=== PATIENT | male | born 1975 | race African-American/Black ===

== ENCOUNTER 2019-03-13 12:11 | Emergency (ER) | payer SELFPAY ==
[2019-03-13 13:34] LABS: #Eosinphils 0.1 thou/uL (0.0-0.7); #Lymphocytes 1.3 thou/uL (1.20-3.40); #Monocytes 0.5 thou/uL (0.11-0.59); #Neutrophils 4.7 thou/uL (1.40-6.50); %Basophils 0.6 % (0.0-1.0); %Eosinophils 1.3 % (0.0-10.0); %Lymphocytes 19.6 % (21.0-51.0); %Neutrophils 70.6 % (42.0-75.0); Hemoglobin 15.8 g/dL (14.0-18.0); Mean Corpuscular HGB CONC 34.1 g/dL (32.0-36.0); Mean Corpuscular Hemoglobin 31.3 pg (27.0-31.0); Mean Corpuscular Volume 91.9 fL (78.0-98.0); Mean Platelet Volume 8.2 fL (7.4-10.4); Platelet Count 212 thou/uL (130-400); RBC Distribution Width 12.5 % (11.5-14.5); Red Blood Cell (RBC) Count 5.05 mill/uL (4.70-6.10); White Blood Cell (WBC) Count 6.6 thou/uL (4.8-10.8)
[2019-03-13 14:00] LABS: ALT (SGPT) 30 U/L (8-55); AST (SGOT) 23 U/L (5-34); Albumin 4.3 g/dL (3.5-5.0); Alkaline Phosphatase 94 U/L (40-150); Anion Gap 12 mmol/L (10-20); BUN (Urea Nitrogen) 18 mg/dL (8.9-20.6); Bilirubin, Total 0.2 mg/dL (0.2-1.2); Calc. Creatinine Clearance 0 mL/min (70-130); Calcium 9.7 mg/dL (7.8-10.44); Carbon Dioxide 28 mmol/L (22-29); Chloride 98 mmol/L (98-107); Dilantin 5.1 ug/mL (10.0-20.0); Estimated GFR-MDRD Greater than 90; Globulin 3.3 g/dL (2.4-3.5); Glucose 96 mg/dL (70-105); Potassium 3.2 mmol/L (3.5-5.1); Protein, Total 7.6 g/dL (6.0-8.3); Sodium 135 mmol/L (136-145)
== END 2019-03-13 14:49 | disposition home or self-care (01) ==
LOC: ERS 12:11
DX: R89.2 Abnormal level of other drugs, medicaments and biological substances in specimens from other organs, systems and tissues (principal); E78.5 Hyperlipidemia, unspecified; E78.00 Pure hypercholesterolemia, unspecified; I10 Essential (primary) hypertension; F41.9 Anxiety disorder, unspecified; F32.9 Major depressive disorder, single episode, unspecified; Z79.899 Other long term (current) drug therapy
CPT/HCPCS: 36415; 80053; 80185; 84146; 85025

== ENCOUNTER 2020-03-19 15:03 | Outpatient (CLI) | payer OTHER ==
--- NOTE | 2020-03-19 17:01 | MRI ---
MR CERVICAL SPINE WITHOUT CONTRAST INDICATION: Concern for cervical disc displacement; neck pain TECHNIQUE: Multiplanar multisequence MR images were obtained of the cervical spine without contrast. COMPARISON: None FINDINGS: Posterior fossa: Within normal limits. Bone marrow signal intensity: There is mild Modic endplate degenerative changes seen at C6-7. Spinal alignment: There is straightening of the normal cervical lordosis. Craniocervical junction: Normal appearing. Prevertebral and perivertebral soft tissues: There is prevertebral edema seen extending from the skul l base to the T1 vertebral level, most evident on image 11 of series 6. Vertebral levels: C2-C3: There is mild facet joint degenerative change bilaterally. C3-4: There is uncovertebral hypertrophy and facet joint degenerative change inducing severe right an d moderate left neural foraminal narrowing. The broad-based bulge produces mild central canal narrowing without definite cord effacement C4-5: There is uncovertebral hypertrophy and facet joint degenerative change inducing stable severe right and mild to moderate left neural foraminal narrowing. Broad-based bulge inducing mild central canal narrowing. C5-C6: There is a broad-based bulge with uncovertebral hypertrophy inducing moderate bilateral neural foraminal narrowing and mild central canal narrowing. C6-C7:, There is an asymmetric to the left broad-based bulge with uncovertebral hypertrophy inducing moderate bilateral neural foraminal narrowing and mild central canal narrowing C7-T1: There is a broad-based bulge causing mild central canal narrowing with mild bilateral neural f oraminal narrowing, right greater than left. IMPRESSION: 1. Abnormal prevertebral edema seen within the region of the longus coli muscles, extending from the skull base through T1, is suspicious for possible calcific tendinitis of the longus coli musculature. Recommend a noncontrast CT of the cervical spine for additional evaluation. 2. Moderate cervical spondylosis with multilevel central canal or neural foraminal narrowing.
== END 2020-03-19 15:04 | disposition home or self-care (01) ==
LOC: BICMRI 15:03
PROVIDERS: ATTEND Psychiatry & Neurology Neurology
DX: M50.20 Other cervical disc displacement, unspecified cervical region (principal); G40.209 Localization-related (focal) (partial) symptomatic epilepsy and epileptic syndromes with complex partial seizures, not intractable, without status epilepticus; R60.0 Localized edema; M47.812 Spondylosis without myelopathy or radiculopathy, cervical region; M48.02 Spinal stenosis, cervical region
CPT/HCPCS: 72141

== ENCOUNTER 2024-01-16 14:16 | Outpatient (CLI) | payer OTHER | END 2024-01-16 14:17 | disposition home or self-care (01) | LOC: SCSMRI 14:16 | PROVIDERS: ATTEND Psychiatry & Neurology Neurology | DX: G40.909 Epilepsy, unspecified, not intractable, without status epilepticus (principal); I67.89 Other cerebrovascular disease | CPT/HCPCS: 70553 ==